=== PATIENT | female | born 1945 | race Caucasian/White ===

== ENCOUNTER 2017-04-05 19:25 | Emergency (ER) | payer MEDICARE ==
[~2017-04-05] VITALS: Ht 165.1 cm; Wt 58.5 kg
[2017-04-05 19:50] VITALS: BP 160/75
[2017-04-05] MEDS ORDERED: AZIT1PAC9 PO (20:28)
--- NOTE | 2017-04-05 20:30 | PHYS DOC ---
Past Medical History Past Medical History: Arthritis, Asthma, CHF, COPD, DVT, Other Additional Past Medical Histor: SCOLIOSIS Past Surgical History: Other Additional Past Surgical Histo: UNKNOWN Alcohol Use: None Drug Use: None Adult General Chief Complaint Chief Complaint: Congestion HPI HPI Patient is a 71 year old female who presents with complaints of productive cough which is nonbloody and discovers being greenish. Patient is a smoker and continues to smoke and is also exposed to secondary tobacco smoke. Patient denies any fevers, chills, abdominal pain, back pain, , rashes. Patient has some chest discomfort but only with the cough. Patient states is similar to previous COPD exacerbations. Patient denies any increased swelling of her lower extremities. Patient usually uses 3 L of oxygen at home, she is on 1 L in the ED and satting 96% Review of Systems Review of Systems Constitutional: Denies fever or chills [] HENT: Yes to nasal congestion and cough Respiratory: Yes to productive cough Cardiovascular: No additional information not addressed in HPI [] GI: Denies abdominal pain, nausea, vomiting, bloody stools or diarrhea [] : Denies dysuria or hematuria [] Musculoskeletal: Denies back pain or joint pain [] Integument: Denies rash or skin lesions [] Neurologic: Denies headache, focal weakness or sensory changes [] All other systems reviewed and found to be negative unless as stated otherwise Allergies Allergies Allergies Coded Allergies Type Severity Reaction Last Updated Verified Sulfa (Sulfonamide Antibiotics) Allergy Severe Anaphylaxis 04/05/17 Yes sulfamethoxazole Allergy Severe Anaphylaxis 04/05/17 Yes trimethoprim Allergy Severe Anaphylaxis 04/05/17 Yes fentanyl Allergy Intermediate 04/05/17 Yes Physical Exam Physical Exam Constitutional: Well developed, well nourished, no acute distress, non-toxic appearance. On 1 L of oxygen HENT: Normocephalic, atraumatic, oropharynx moist, no oral exudates, nose normal. [] Eyes: EOMI, conjunctiva normal, no discharge. [] Neck: Normal range of motion, no tenderness, supple, no stridor. No LAD, no meningeal signs Cardiovascular:Heart rate regular rhythm, no murmur, normal perfusion Lungs & Thorax: Bilateral breath sounds clear to auscultation, no tachypnea Abdomen: Bowel sounds normal, soft, no tenderness, no masses, no pulsatile masses. [] Skin: Warm, dry, no erythema, no rash. [] Back: No tenderness, no CVA tenderness. [] Extremities: No tenderness, no cyanosis, no clubbing, lower extremity peripheral edema that is at her baseline. No signs of DVT Neurologic: Alert and oriented X 3, normal motor function no focal deficits noted. [] Psychologic: Affect normal, judgement normal, mood normal. [] Current Patient Data Vital Signs Vital Signs Date Time Temp Pulse Resp B/P (MAP) Pulse Ox O2 Delivery O2 Flow Rate FiO2 04/05/17 19:50 98.7 75 20 160/75 (103) 94 Nasal Cannula 2.0 98.7 EKG EKG 1957 72, sinus rhythm, no STEMI [] Radiology/Procedures Radiology/Procedures Preliminary chest x-ray read by me no acute disease [] Course & Med Decision Making Course & Med Decision Making Pertinent Labs and Imaging studies reviewed. (See chart for details) [] Smoking cessation counseling has been providing back to the patient, total time 3 minutes: Risk and benefits were discussed including improving the breathing, decrease infections, decreased of Cardiac or stroke events. Questions were sought and answered. Patient understands his states that she is already decrease her smoking by a significant amount. Nevertheless I encouraged the patient to completely stop. Patient states she we'll try to stop. 2115 pt now states she is without electricity and cannot run her oxygen concentrator that she needs at night, we offered the patient admission so that we can arrange for her social situation to be fixed however the patient declines admission and prefers to go home. Patient has medical decision capacity she's no distress or displayingconfusion. Patient decides to leave AGAINST MEDICAL ADVICE, risk and benefits were explained by nursing and by myself is included or disability patient still wishes to be discharged home. Dragon Disclaimer Dragon Disclaimer This electronic medical record was generated, in whole or in part, using a voice recognition dictation system. Departure Departure Impression: Primary Impression: Cough Additional Impressions: Tobacco abuse Tobacco abuse counseling Disposition: HOME, SELF-CARE Condition: STABLE Referrals: UNKNOWN PCP NAME (PCP) Please follow-up with your PCP for recheck in 2 days. Please refrain from smoking cigarettes isaacs feeling sick. Patient Instructions: Cough, Adult, Smokeless Tobacco Use Scripts Azithromycin (AZITHROMYCIN PACKET) 1 Gm Packet 1 PACKET PO ONCE, #1 PACKET Prov: Harleen LEWIS MD 04/05/17 Problem Qualifiers Harleen LEWIS MD Apr 05, 2017 20:29
--- NOTE | 2017-04-06 08:15 | RAD ---
Exam performed: 2 views of the chest. Indication: Flu like symptoms for 2 weeks with productive cough and yellow sputum, history of hypertension, diabetes, COPD. pneumonia Date of Service:04/05/2017 9:40 PM . Comparison : None available. Findings: PA and lateral radiographs of the chest reveal a normal cardiomediastinal contour. Atheromatous calcification of the aortic knob. Bipolar pacemaker. The lungs are hyperinflated . Questionable airspace opacities are seen in the right mid and lower lung. There are calcified lymph nodes in both anahy. No pleural fluid is seen. The visualized osseous structures are unremarkable. Impression: 1. Emphysematous lungs. 2. Questionable infiltrates right lung.
--- NOTE | 2017-04-06 10:36 | EKG ---
[facility] [address] [place] [address] Test Date: 2017-04-05 Test Time: 19:52:01 Pat Name: ELOISA FITZPATRICK Department: Room: Gender: F Bowl Topper: : 1945 Requested By: Harleen LEWIS Order Number: [id number] Reading MD: William Peters Measurements Intervals [place] Rate: 72 P: 64 [place]: 124 QRS: 158 QRSD: 160 T: 85 QT: 456 QTc: 501 Interpretive Statements SINUS RHYTHM SUSPECT V-PACED RHYTHM Electronically Signed On 04-11-2017 8:38:55 CDT by William Peters
== END 2017-04-05 20:59 | disposition home or self-care (01) ==
LOC: ER 19:25
DX: R05 Cough (principal); F17.200 Nicotine dependence, unspecified, uncomplicated; R07.89 Other chest pain; R09.81 Nasal congestion; M19.90 Unspecified osteoarthritis, unspecified site; J44.9 Chronic obstructive pulmonary disease, unspecified; I50.9 Heart failure, unspecified; M41.9 Scoliosis, unspecified; Z71.6 Tobacco abuse counseling; Z88.2 Allergy status to sulfonamides; Z88.1 Allergy status to other antibiotic agents; Z88.4 Allergy status to anesthetic agent
CPT/HCPCS: 71020; 93005; 99284-25